=== PATIENT | male | born 1965 | race Caucasian/White ===

== ENCOUNTER 2016-12-10 11:20 | Outpatient (CLI) | payer BC ==
[~2016-12-10] VITALS: Ht 175.3 cm; Wt 112.7 kg
--- NOTE | ~2016-12-10 | HEMODYNAMI ---
PATIENT:KOKO MURPHY MEDICAL RECORD: [id number] : 67 LOCATION:[facility] ADMISSION DATE: 12/10/16 Generatedon:12/10/201613:25 Patient name: KOKO MURPHY Patient #: [id number] SSN: DO B: 1965 Date of study: 12/10/2016 Page: Of Hemodynamic Procedure Report Patient Data Patient Demographics Procedure consent was obtained First Name: KOKO Gender: Male Last Name: KATHERINE : 1965 Patient #: [id number] Age: 51 year(s) Race: Unknown Additional ID: [id number] Contact details [address]: [address] [place] [address] State: [place] City: [place] Zip code: [address] Past Medical History Allergies Allergen Reaction Date Comments Reported Penicillins 12/10/2016 Other allergy 12/10/2016 Amoxicillin Admission Admission Data Admission Date: 12/10/2016 Admission Time: 11:20 Height (in.): 69 BSA: 2.26 (m2) Height (cm.): 175.26 BMI: 36.62 (kg/m2) Weight (lbs.): 248 Weight (kg.): 112.49 Lab Results Lab Result Date: 12/10/2016 Lab Result Time: 0:00 Biochemistry Name Units Result Min Max Creatinine mg/dl 1 --(--*-)-- 0.6 1.3 CBC Name Units Result Min Max Hemoglobin g/dl 16 --(--*-)-- 13.5 17.5 Procedure Procedure Types Cath Procedure Diagnostic Procedure LHC LHC w/Coronaries Miscellaneous Procedures Moderate Sedation up to 30 minutes Procedure Description Procedure Date Procedure Date: 12/10/2016 Procedure Start Time: 13:11 Procedure End Time: 13:24 Procedure Staff Name Function Faustino Salcedo MD Performing Physician Tre Purdy RT Scrub Neo Jaquez RN Nurse Maria Teresa More RT Monitor Procedure Data Cath Procedure Fluoroscopy Diagnostic fluoroscopy Total fluoroscopy Time: 1.8 time: 1.8 min min Diagnostic fluoroscopy Total fluoroscopy dose: dose: 298.15 mGy 298.15 mGy Contrast Material Contrast Material Type Amount (ml) Isovue 300 58 Entry Location Entry Primary Successful Side Size Upsize Upsize Entry Closure White ccessful Closure Location (Fr) 1 (Fr) 2 (Fr) Remarks Device Remarks Radial Right 6 Fr Mechanical artery Short Compression Estimated blood loss: 5 ml Diagnostic catheters Device Type Used For End Catheter Placement Terumo 5Fr Enrique 110cm LV Angiography catheter Terumo 5Fr Enrique 110cm Left Coronary catheter Angiography Terumo 5Fr Enrique 110cm Right Coronary catheter Angiography Procedure Complications No complications Procedure Medications Medication Administration Route Dosage Oxygen NC 2 l/min Heparin Flush Bag added to field 2 bags (1000units/500ml NS) 0.9% NaCl I.V. 100 ml/hr Radial Cocktail added to field 1 syringe (Verapomil 2mg/Nitro 400mcg/Heparin 1500units) Fentanyl I.V. 50 mcg Versed I.V. 1 mg Fentanyl I.V. 50 mcg Versed I.V. 1 mg Fentanyl I.V. 50 mcg Versed I.V. 1 mg Radial Cocktail I.A. 1 syringe (Verapomil 2mg/Nitro 400mcg/Heparin 1500units) Fentanyl I.V. 50 mcg Hemodynamics Rest BSA: 2.26 (m2) HGB: 16 (g/dl) O2 Consumption: Estimated: 264.49 (ml/min) O2 Cons umption indexed: Estimated:117.03 (ml/min/m) Heart Rate: 63 (bpm) Pressure Samples Time Site Value (mmHg) Purpose Heart Use Rate(bpm) 13:16 LV 117/-5,11 EDP 66 Gradients Valve Time Site Site Mean SEP/DFP Peak To Heart Use 1 2 (mmHg) (sec/min) Peak Rate (mmHg) (bpm) Aortic 13:17 LV AO 70 Snapshots Pre Cath Intra NCS Post Cath Vital Signs Time Heart Resp SPO2 NIBP Rhythm Pain Sedation Rate (ipm) (%) (mmHg) Status Level (bpm) 12:54:03 67 16 95 128/80(93) NSR 0 (11) 10(A) , No pain 12:58:39 64 18 96 118/71(89) NSR 0 (11) 10(A) , No pain 13:03:08 64 16 93 112/76(96) NSR 0 (11) 10(A) , No pain 13:07:38 63 16 93 105/68(83) NSR 0 (11) 10(A) , No pain 13:12:06 65 17 94 114/65(80) NSR 0 (11) 9(A) , No pain 13:16:30 77 16 93 103/54(95) NSR 0 (11) 9(A) , No pain 13:20:57 72 17 92 103/60(78) NSR 0 (11) 9(A) , No pain 13:24:20 71 18 94 102/59(80) NSR 0 (11) 9(A) , No pain Medications Time Medication Route Dose Verified Delivered Reason Notes Effectiveness by by 12:54:06 Oxygen NC 2 l/min Neo Neo Per Leonid Jaquez RN physician RN 12:54:19 Heparin Flush added 2 bags Neo Neo used for Bag to Leonid Jaquez RN procedure (1000units/500ml RN NS) 12:54:38 0.9% NaCl I.V. 100 Neo Neo Per ml/hr Leonid Jaquez RN physician RN 13:04:12 Radial Cocktail added 1 Neo Neo used for (Verapomil to syringe Leonid Jaquez RN procedure 2mg/Nitro RN 400mcg/Heparin 1500units) 13:04:22 Fentanyl I.V. 50 mcg Neo Neo for sedation Leonid Jaquez RN RN 13:04:32 Versed I.V. 1 mg Neo Neo for sedation Leonid Jaquez RN RN 13:06:23 Fentanyl I.V. 50 mcg Neo Neo for sedation Leonid Jaquez RN RN 13:06:31 Versed I.V. 1 mg Neo Neo for sedation Leonid Jaquez RN RN 13:10:49 Fentanyl I.V. 50 mcg Neo Neo for sedation Leonid Jaquez RN RN 13:11:49 Versed I.V. 1 mg Neo Neo for sedation Leonid Jaquez RN RN 13:16:12 Radial Cocktail I.A. 1 Neo Faustino for (Verapomil syringe Leonid encinas 2mg/Nitro RN 400mcg/Heparin 1500units) 13:16:19 Fentanyl I.V. 50 mcg Neo Neo for sedation Leonid Jaquez RN clicker operator Log Time Note 12:30:47 Tre Crabtreeyder RT(R) sent for patient. Start room use. 12:39:48 Time tracking: Regular hours 12:39:52 Plan of Care:Hemodynamics will remain stable., Cardiac rhythm will remain stable., Comfort level will be maintained., Respiratory function will remain adequate., Patient/ family verbilizes understanding of procedure., Procedure tolerated without complication., Recovers from procedure without complications.. 12:44:34 Patient received from Pre/Post Procedure Room to CCL 3 Alert and oriented. Tansferred to table in Supine position. 12:44:35 Warm blankets applied, and farrukh hugger turned on for patient comfort. 12:44:35 Correct patient and procedure confirmed by team. 12:44:36 Signed procedure consent form obtained from patient. 12:44:37 ECG and BP/O2 sat monitors applied to patient. 12:44:38 Full Disclosure recording started 12:52:32 Vital chart was started 12:54:06 Oxygen 2 l/min NC was given by Neo Jaquez RN; Per physician; 12:54:19 Heparin Flush Bag (1000units/500ml NS) 2 bags added to field was given by Neo Jaquez RN; used for procedure; 12:54:38 0.9% NaCl 100 ml/hr I.V. was given by Neo Jaquez RN; Per physician; 12:59:30 Baseline sample Acquired. 12:59:38 Rhythm: sinus rhythm 12:59:56 H&P Date Dictated: 11/19/2016 Within 30 days and on chart., H&P Addendum completed by physician on day of procedure. (MUST COMPLETE FOR ALL OUTPATIENTS). 12:59:57 Pre-procedure instructions explained to patient. 12:59:58 Pre-op teaching completed and patient verbalized understanding. 12:59:59 Family in waiting room. 13:00:02 Patient NPO since Midnight. 13:00:11 Patient allergic to Penicillins 13:00:22 Patient allergic to Other allergyAmoxicillin 13:00:25 Is the patient allergic to Iodine/contrast media? No. 13:00:28 Is patient on blood thinner?No 13:00:31 Patient diabetic? No. 13:00:42 Previous problem with sedation/anesthesia? No ? 13:00:44 Snore? Yes 13:00:45 Sleep apnea? No 13:00:46 Deviated septum? No 13:00:46 Opens mouth fully? Yes 13:00:47 Sticks out tongue? Yes 13:00:49 Airway obstruction? No ? 13:00:51 Dentures? No ? 13:00:54 Pre procedure: right dorsailis pedis pulse 2+ Normal; easily identifiable; not easily obliterated 13:00:55 Modified José Luis's test Ulnar < 7 seconds 13:00:56 Patient pain scale 0/10 ?. 13:01:00 IV patent on arrival in left hand with 0.9% NaCl at [facility]. 13:01:48 Lab Result : Creatinine 1 mg/dl 13:01:48 Lab Result : Hemoglobin 16 g/dl 13:01:52 Lab results completed and on chart. 13:02:02 Right Radial & Right Groin area was prepped with chlora-prep and draped in sterile fashion 13:02:04 Alarms reviewed by R. N. 13:02:04 Sharps counted by scrub and verified by R.N. 13:02:06 Use device set Radial Dx 13:02:07 Acist Syringe opened to sterile field. 13:02:08 Medline Cath Pack opened to sterile field. 13:02:08 Bag Decanter opened to sterile field. 13:02:08 Terumo 6Fr Slender Glidesheath opened to sterile field. 13:02:09 St Marshal 260cm J .035 wire opened to sterile field. 13:02:09 Acist Hand Control opened to sterile field. 13:02:09 Acist Manifold opened to sterile field. 13:02:16 Cook 21G 4cm Radial Needle opened to sterile field. 13:02:27 Patient Height : 175.26 inches 13:02:29 Patient Weight : 112.49 lbs 13:03:07 Final Timeout: patient, procedure, and site verified with staff and physician. All members of the team are in agreement. 13:03:10 Right Radial site verified by team. 13:03:13 Physical assessment completed. ASA score P 2 - A patient with mild systemic disease as per Faustino Salcedo MD. 13:03:16 Sedation plan: IV Moderate Sedation Versed, Fentanyl 13:04:12 Radial Cocktail (Verapomil 2mg/Nitro 400mcg/Heparin 1500units) 1 syringe added to field was given by Neo Jaquez RN; used for procedure; 13:04:22 Fentanyl 50 mcg I.V. was given by Neo Jaquez RN; for sedation; 13:04:32 Versed 1 mg I.V. was given by Neo Jaquez RN; for sedation; 13:06:23 Fentanyl 50 mcg I.V. was given by Neo Jaquez RN; for sedation; 13:06:31 Versed 1 mg I.V. was given by Neo Jaquez RN; for sedation; 13:07:56 Zero performed for pressure channel P1 13:08:00 Zero performed for pressure channel P1 13:08:03 Zero performed for pressure channel P1 13:08:07 Zero performed for pressure channel P1 13:08:09 Zero performed for pressure channel P1 13:10:49 Fentanyl 50 mcg I.V. was given by Neo Jaquez RN; for sedation; 13:11:03 Procedure started. 13:11:09 Local anesthetic to right radial artery with Lidocaine 2% by Faustino Salcedo MD.INITIAL ACCESS ONLY 13:11:49 Versed 1 mg I.V. was given by Neo Jaquez RN; for sedation; 13:14:09 A 6 Fr Short sheath was inserted into the Right Radial artery 13:15:09 A Terumo 5Fr Enrique 110cm catheter was advanced over the wire and used for LV Angiography. 13:16:12 Radial Cocktail (Verapomil 2mg/Nitro 400mcg/Heparin 1500units) 1 syringe I.A. was given by Faustino Salcedo MD; for vasodilation; 13:16:19 Fentanyl 50 mcg I.V. was given by Neo Jaquez RN; for sedation; 13:16:21 LV gram done using LOTT 13:16:22 LV hemodynamics recorded. 13:16:26 Injector settings: Ml/sec: 5, Volume: 15, 13:16:39 EF : 50 % 13:18:11 A Terumo 5Fr Enrique 110cm catheter was advanced over the wire and used for Left Coronary Angiography. 13:19:13 A Terumo 5Fr Enrique 110cm catheter was advanced over the wire and used for Right Coronary Angiography. 13:19:15 Catheter removed. 13:19:23 Terumo TR Band Large opened to sterile field. 13:19:57 Sheath removed intact; hemostasis achieved with Mechanical Compression to the Right Radial artery. 13:19:58 Procedure ended.(Physican Out) 13:20:14 Fluoroscopy time 01.80 minutes. 13:20:22 Fluoroscopy dose: 298.15 mGy 13:20:22 Flurop Dose total: 298.15 13:20:25 Contrast amount:Isovue 300 58ml. 13:20:26 Sharps counted by scrub and verified by R.N. 13:20:27 TR band inflated with 11cc of air. 13:20:28 Insertion/operative site no bleeding no hematoma. 13:20:34 Post right radial artery:stable, clean and dry 13:20:35 Post Procedure Pulses reassessed and unchanged 13:20:38 Post-procedure physical assessment completed. ASA score P 2 - A patient with mild systemic disease as per Faustino Salcedo MD. 13:20:41 Post procedure rhythm: unchanged. 13:20:43 Estimated blood loss: 5 ml 13:20:43 Post procedure instruction explained to patient.Patient verbalizes understanding. 13:20:44 Patient needs reinforcement of post procedure teaching. 13:20:58 Procedure type changed to Cath procedure, Diagnostic procedure, LHC, LHC w/Coronaries, Miscellaneous Procedures, Moderate Sedation up to 30 minutes 13:21:04 Procedure Complication : No complications 13:21:06 See physician's report for complete and final results. 13:21:20 Procedure and supply charges have been captured, reviewed, submitted and are correct. 13:24:23 Vital chart was stopped 13:24:25 Report given to Pre/Post Procedure Room. 13:24:28 Patient transfered to Pre/Post Procedure Room with Stretcher. 13:24:35 Procedure ended. 13:24:35 Full Disclosure recording stopped 13:24:39 End room use (Document Last) Device Usage Item Name Manufacture Quantity Catalog Hospital Part Current Minimal Lot# / Number Charge Number Stock Stock Serial# Code [facility] 1 29719 [id number] [id number] [id number] 20 Syringe [employer] Medline Cardinal 1 [id number] 42092 [id number] 5 Cath Pack Health Bag Microtek 1 2002S 177083 89154 [id number] 5 [employer] Terumo 6Fr Terumo 1 [id number] 140795 503166 412242 [address] [facility] Marshal 1 [id number] 726577 289372 907375 30 260cm J .035 wire Acist Hand Acist 1 32509 788533 455732 366192 5 Control [employer] Inc Acist Acist 1 04446 311305 981680 389553 5 Manifold [employer] Cook 21G Cook Medical 1 [id number] 184029 988969 5 4cm Radial Needle Terumo 5Fr Terumo 1 40-2636 464363 828909 785298 5 Enrique 110cm catheter Terumo TR Terumo 1 [id number] 135281 [id number] 40 Band Large Signature Audit [place] Stage Time Signature Unsigned Intra-Procedure 12/10/2016 Maria Teresa 1:25:15 PM Counts RT(R) Signatures Monitor : Maria Teresa Signature : Counts RT Date : Time : [id number] [place] [address]
[2016-12-10] MEDS ORDERED: BYSTOLIC2.5 MG PO (11:37)
[2016-12-10] MEDS ORDERED: TOPAMAX50 MG PO (11:38)
[2016-12-10] MEDS ORDERED: PROTONIX40 MG PO (11:38)
[2016-12-10] MEDS ORDERED: MOBIC7.5 MG PO (11:39)
[2016-12-10] MEDS ORDERED: UROCIT-K10 MEQ PO (11:39)
[2016-12-10] MEDS ORDERED: ROBAXIN-750750 MG PO (11:40)
[2016-12-10] MEDS ORDERED: PRAVACHOL40 MG PO (11:41)
[2016-12-10] MEDS ORDERED: HYDROCODONE-APA1 TAB PO (11:41)
[2016-12-10 11:42] VITALS: BP 147/96; Ht 175.3 cm; Wt 112.7 kg
[2016-12-10 12:02] LABS: BASOPHILS 0.6 % (0.0-2.0); EOSINOPHILS 3.1 % (0-7); HEMATOCRIT 45.6 % (42.0-54.0); IMMATURE GRANULOCYTES 0.3 % (0-5); LYMPHOCYTES 28.5 % (15-50); MCH 32.9 pg (26.0-34.0); MCHC 35.1 g/dL (31.0-37.0); MCV 93.6 fL (80.0-100.0); MEAN PLATELET VOLUME 8.9 fL (7.4-10.4); MONOCYTES 10.7 % (2-11); NEUTROPHILS 56.8 % (40-80); PLATELET COUNT 191 10x3/uL (130-400); RBC 4.87 10x6/uL (4.20-6.10); RDW 12.3 % (11.5-14.5); WBC 6.5 10x3/uL (4.8-10.8)
[2016-12-10 12:23] LABS: CALC OSMOLALITY 278 mosm/kg (275-300); CALCIUM 8.6 mg/dL (8.5-10.1); CARBON DIOXIDE 25.6 mmol/L (21.0-32.0); CHLORIDE - SERUM 105 mmol/L (98-107); GLUCOSE 101 mg/dL (74-106); SODIUM 139 mmol/L (136-145); UREA NITROGEN 16 mg/dL (7-18); eGFR NON AFRICAN AMERICAN 84 mL/min (90-120)
--- NOTE | 2016-12-10 13:54 | NUR ---
1350 SITTING UP IN BED, TALKING WITH FAMILY AT BEDSIDE. ROOM AIR. NSR RATE 72 W NO C/O CHEST PAIN. PULSES PALP X 4. R WRIST TR BAND C/D/I WITH NO HEMATOMA OR BLEEDING. SIPPING SODA AND EATING TURKEY SANDWICH WITH NO NAUSEA.
--- NOTE | 2016-12-10 15:24 | NUR ---
1430 ALL VITALS WNL. ROOM AIR, NO DISTRESS. VITALS ALL WNL. R WRIST TR BAND C/D/I WITH NO HEMATOMA OR BLEEDING. 1500 R WRIST REMAINS C/D/I WITH NO HEMATOMA OR BLEEDING. 1526 2CC AIR REMOVED FROM R WRIST TR BAND. WILL MONITOR CLOSELY FOR BLEEDING. ALL VITALS REMAIN WNL.
--- NOTE | 2016-12-10 15:43 | NUR ---
PIV REMOVED FROM LEFT HAND WITH BANDAID APPLIED. UP TO BEDSIDE TO DRESS WITH AT BEDSIDE.
--- NOTE | 2016-12-10 15:55 | NUR ---
2CC AIR REMOVED FROM R WRIST TR BAND. D/C INSTRUCTIONS DISCUSSED AT BEDSIDE WITH , BOTH VERBALIZED UNDERSTANDING.
--- NOTE | 2016-12-10 16:17 | NUR ---
TR BAND REMOVED, DRIED BLOOD REMOVED FROM R WRIST...TEGADERM AND 2X2 APPLIED. WHEELED OUT VIA WHEELCHAIR.
--- NOTE | 2016-12-25 08:17 | OP ---
PATIENT NAME: KOKO MURPHY MEDICAL RECORD: [id number] :67 LOCATION:D.[facility] ADMISSION DATE: SURGEON: GEORGES MAYFIELD M.D. DATE OF OPERATION: 12/10/2016 Catheterization Report REFERRING PHYSICIAN: Luther Hitchcock MD PROCEDURES PERFORMED: 1. Selective coronary angiography. 2. Left heart catheterization with ventriculogram. INDICATION: A 51-year-old gentleman who presents with symptoms of angina. Recent Cardiolite stress testing revealed inferior wall ischemia. EQUIPMENT USED: A 5-Lithuanian Enrique catheter. TECHNIQUE: A5-Lithuanian sheath was placed in retrograde fashion in the right radial artery. Next, selective coronary angiography was performed in standard 5-Lithuanian Enrique catheter. Left heart catheterization was performed using the Enrique catheter as well. CORONARY ANATOMY: 1. Left main: Left main trunk is large in caliber. It gives rise to the LAD and circumflex. It has no obstruction. 2. LAD: This is a large caliber vessel extending to the apex. It gives rise to a moderate caliber diagonal proximal segment. The LAD and diagonal are smooth-walled vessels and are angiographically normal. 3. Circumflex: This vessel is moderate in caliber. It provides 2 large posterolateral branches in the distal segment. The circumflex and lateral branches are smooth-walled vessels and are angiographically normal. 4. Right coronary artery: This vessel is large in caliber and dominant. It provides the PDA and distal segment. This vessel is smooth-walled and angiographically normal. Left ventricle: Left ventricle is normal in size. No wall motion abnormalities are seen. Estimated ejection fraction is lower limits of normal around 50%. IMPRESSION: 1. Normal coronary arteries. 2. Normal left ventricular function. RECOMMENDATIONS: I suspect the Cardiolite stress test was a false positive. We will continue with medical management. TRANSINT:[id number] Voice Confirmation ID: [id number] DOCUMENT ID: [id number] OPERATIVE REPORT [id number] KOKO MURPHYGEORGES AARON M.D. at 0817 CC: [id number] DICTATION DATE: 12/10/16 1328 FINANCIAL AID MANAGER: 12/10/16 1954 [facility] CLI 12/10/16 [facility] [address] [place] [address]
== END 2016-12-10 16:20 | disposition home or self-care (01) ==
LOC: D.CATH 11:20
PROVIDERS: Internal Medicine Cardiovascular Disease
DX: I20.9 Angina pectoris, unspecified (principal); R94.30 Abnormal result of cardiovascular function study, unspecified; I10 Essential (primary) hypertension; Z82.49 Family history of ischemic heart disease and other diseases of the circulatory system

== ENCOUNTER 2017-05-17 12:28 | Outpatient (CLI) | payer BC ==
[2016-12-10 11:42] VITALS: BMI 36.7
[~2017-05-17 12:28] MED LIST: BYSTOLIC2.5 MG PO; HYDROCODONE-APA1 TAB PO; MOBIC7.5 MG PO; PRAVACHOL40 MG PO; PROTONIX40 MG PO; ROBAXIN-750750 MG PO; TOPAMAX50 MG PO; UROCIT-K10 MEQ PO
== END 2017-05-17 23:59 | disposition home or self-care (01) ==
LOC: D.MRI 12:28
DX: G43.009 Migraine without aura, not intractable, without status migrainosus (principal)